=== PATIENT | female | born 1945 | race Caucasian/White ===

== ENCOUNTER 2017-11-03 05:39 | Inpatient (IN) | payer MEDICARE, OTHER ==
[2017-11-03] MEDS ORDERED: predniSONE 20 MG TAB PO STA (05:51)
[2017-11-03] MEDS ORDERED: IPRATROPIUM-ALBUTEROL 3 ML NEB INHALATION STA (05:51)
--- NOTE | 2017-11-03 05:54 | ED ---
General Adult HPI - General Chief complaint: Shortness of Breath Stated complaint: JAYLENE Time Seen by Provider: 11/03/17 05:46 Source: patient, family Mode of arrival: ambulatory Limitations: no limitations - History of Present Illness Initial comments: Her back is a 72-year-old female with a past medical history of asthma presents the emergency department today for evaluation of persistent wheezing. Patient reports that she developed some wheezing on Friday night, she reports that she wheezed throughout the evening but that it resolved and she was able to sleep throughout the night. She reports that she felt well throughout the day on Friday. Friday evening she again developed some wheezing, she reports she tried using an MDI inhaler with no improvement in her symptoms. She reports the wheezing Throughout the entire night and this morning she decided to come to the ER for further evaluation. Patient describes the wheezing as feeling like a tightness throughout her chest, she reports that she feels like she cannot take a deep breath and when she breathes out she wheezes and it causes her to have a harsh cough. Cough is been nonproductive. Patient denies any fevers, chills, nausea, vomiting, chest pain or palpitations. Asthma and does have an inhaler at home, she has required breathing treatments in the past, he is a former smoker but reports she has not smoked in years and has never been formally diagnosed with COPD or emphysema or chronic bronchitis. - Related Data Home Medications Medication Instructions Recorded Confirmed Aspirin 81 mg PO DAILY 02/28/15 11/03/17 Calcium Carbonate/Vitamin D3 1 tab PO DAILY 02/28/15 11/03/17 [Calcium 600-Vit D3 400 Tablet] Cetirizine HCl [Zyrtec] 10 mg PO DAILY 02/28/15 11/03/17 Levothyroxine Sodium [Synthroid] 100 mcg PO DAILY 02/28/15 11/03/17 Multivit-Min/FA/Lycopen/Lutein 1 tab PO DAILY 02/28/15 11/03/17 [Centrum Silver Tablet] Omeprazole [PriLOSEC] 20 mg PO DAILY 02/28/15 11/03/17 Pravastatin Sodium [Pravachol] 40 mg PO DAILY 02/28/15 11/03/17 Glucosam/Favio-Msm1/C/Rex/Bosw 1 tab PO DAILY 04/25/15 11/03/17 [Glucosamine-Chondroitin Tablet] Temazepam [Restoril] 15 mg PO HS PRN 04/25/15 11/03/17 Previous Rx's Medication Instructions Recorded Hydrocodone/Acetaminophen [[place] 1 tab PO Q6HR PRN #30 tab 04/25/15 5-325] Ibuprofen [Motrin] 600 mg PO Q6HR PRN #60 tab 04/25/15 HYDROcodone/APAP 5-325MG [[place] 5] 1 - 2 each PO Q4-6H PRN #90 tab 07/28/15 Allergies Allergy/AdvReac Type Severity Reaction Status Date / Time No Known Allergies Allergy Verified 11/03/17 05:44 Review of Systems ROS Statement: Those systems with pertinent positive or pertinent negative responses have been documented in the HPI. ROS Other: All systems not noted in ROS Statement are negative. Past Medical History Past Medical History: Asthma, GERD/Reflux, Hyperlipidemia, Osteoarthritis (OA), Thyroid Disorder History of Any Multi-Drug Resistant Organisms: None Reported Past Surgical History: Cholecystectomy, Hysterectomy, Orthopedic Surgery Additional Past Surgical History / Comment(s): carpel tunnel,trigger thumb Additional Past Anesthesia/Blood Transfusion Reaction / Comment(s): slow to wake up Past Psychological History: No Psychological Hx Reported Smoking Status: Never smoker Past Alcohol Use History: None Reported Past Drug Use History: None Reported - Past Family History Sister(s) Family Medical History: Cancer General Exam - General Exam Comments Initial Comments: GENERAL: Patient is well-developed and well-nourished. In moderate respiratory distress HENT: Normocephalic, Atraumatic. Neck is soft and supple. No significant lymphadenopathy is noted. Oropharynx is clear. Moist mucous membranes. Neck has full range of motion without eliciting any pain. EYES: The sclera were anicteric and conjunctiva were pink and moist. Extraocular movements were intact and pupils were equal round and reactive to light. Eyelids were unremarkable. PULMONARY: Significant expiratory wheezes in all lung banks CARDIOVASCULAR: There is a regular rate and rhythm without any murmurs gallops or rubs. ABDOMEN: Soft and nontender with normal bowel sounds. SKIN: Skin is clear with no lesions or rashes and otherwise unremarkable. NEUROLOGIC: Patient is alert and oriented x3. Cranial nerves II through XII are grossly intact. Motor and sensory are also intact. Normal speech, volume and content. Symmetrical smile. MUSCULOSKELETAL: Normal extremities with adequate strength and full range of motion. No lower extremity swelling or edema. No calf tenderness. No edema LYMPHATICS: No significant lymphadenopathy is noted PSYCHIATRIC: Normal psychiatric evaluation. Limitations: no limitations Limitations: no limitations Course Vital Signs 11/03/17 11/03/17 11/03/17 05:42 06:11 06:18 Temperature 98 F Pulse Rate 77 72 78 Respiratory 20 Rate Blood Pressure 120/64 O2 Sat by Pulse 94 L Oximetry 11/03/17 06:48 Temperature Pulse Rate 74 Respiratory 16 Rate Blood Pressure 114/58 O2 Sat by Pulse 98 Oximetry EKG Findings - EKG Comments: EKG Findings:: EKG obtained at 5:52 AM, rate is 65, rhythm is sinus, normal axis , normal intervals, [place] 136, QRS 82, QTc 413. There is no acute ST elevations or depressions no evidence of acute ischemia or infarction. Medical Decision Making - Medical Decision Making Patient was seen and evaluated, history was obtained from the patient and EMS patient with wheezing in all lung banks, history of asthma, no history of COPD never a smoker Breathing treatments and steroids were ordered EKG nonischemic Labs unremarkable Patient was reevaluated after breathing treatment, she had less respiratory effort but continued to have wheezing in all lung bakns. Considering the patient's advanced age, the fact that she does not have a nebulizer at home. This is not her baseline. I do feel she requires closer monitoring. Patient care was discussed with Dr. araya who accepts the patient to observation for asthma exacerbation and an elderly patient. - Lab Data Result diagrams: 11/03/17 06:01 11/03/17 06:01 Lab Results 11/03/17 11/03/17 11/03/17 Range/Units 06:01 06:01 06:01 WBC 6.6 (3.8-10.6) k/uL RBC 4.11 (3.80-5.40) m/uL Hgb 12.3 (11.4-16.0) gm/dL Hct 37.7 (34.0-46.0) % MCV 91.6 (80.0-100.0) fL MCH 29.8 (25.0-35.0) pg MCHC 32.6 (31.0-37.0) g/dL RDW 13.7 (11.5-15.5) % Plt Count 187 (150-450) k/uL Neutrophils % 61 % Lymphocytes % 27 % Monocytes % 6 % Eosinophils % 5 % Basophils % 0 % Neutrophils # 4.0 (1.3-7.7) k/uL Lymphocytes # 1.8 (1.0-4.8) k/uL Monocytes # 0.4 (0-1.0) k/uL Eosinophils # 0.3 (0-0.7) k/uL Basophils # 0.0 (0-0.2) k/uL PT (9.0-12.0) sec INR (<1.2) APTT (22.0-30.0) sec Sodium 144 (137-145) mmol/L Potassium 4.1 (3.5-5.1) mmol/L Chloride 107 (98-107) mmol/L Carbon Dioxide 28 (22-30) mmol/L Anion Gap 9 mmol/L BUN 13 (7-17) mg/dL Creatinine 0.82 (0.52-1.04) mg/dL Est GFR (CKD-EPI)AfAm 82 (>60 ml/min/1.73 sqM) Est GFR (CKD-EPI)NonAf 71 (>60 ml/min/1.73 sqM) Glucose 94 (74-99) mg/dL Calcium 9.0 (8.4-10.2) mg/dL Magnesium 2.3 (1.6-2.3) mg/dL Total Bilirubin 0.4 (0.2-1.3) mg/dL AST 32 (14-36) U/L ALT 27 (9-52) U/L Alkaline Phosphatase 81 (38-126) U/L Troponin I (0.000-0.034) ng/mL NT-Pro-B Natriuret Pep 317 pg/mL Total Protein 6.6 (6.3-8.2) g/dL Albumin 3.8 (3.5-5.0) g/dL 18 11/03/17 Range/Units 06:01 06:01 WBC (3.8-10.6) k/uL RBC (3.80-5.40) m/uL Hgb (11.4-16.0) gm/dL Hct (34.0-46.0) % MCV (80.0-100.0) fL MCH (25.0-35.0) pg MCHC (31.0-37.0) g/dL RDW (11.5-15.5) % Plt Count (150-450) k/uL Neutrophils % % Lymphocytes % % Monocytes % % Eosinophils % % Basophils % % Neutrophils # (1.3-7.7) k/uL Lymphocytes # (1.0-4.8) k/uL Monocytes # (0-1.0) k/uL Eosinophils # (0-0.7) k/uL Basophils # (0-0.2) k/uL PT 9.6 (9.0-12.0) sec INR 1.0 (<1.2) APTT 26.4 (22.0-30.0) sec Sodium (137-145) mmol/L Potassium (3.5-5.1) mmol/L Chloride (98-107) mmol/L Carbon Dioxide (22-30) mmol/L Anion Gap mmol/L BUN (7-17) mg/dL Creatinine (0.52-1.04) mg/dL Est GFR (CKD-EPI)AfAm (>60 ml/min/1.73 sqM) Est GFR (CKD-EPI)NonAf (>60 ml/min/1.73 sqM) Glucose (74-99) mg/dL Calcium (8.4-10.2) mg/dL Magnesium (1.6-2.3) mg/dL Total Bilirubin (0.2-1.3) mg/dL AST (14-36) U/L ALT (9-52) U/L Alkaline Phosphatase (38-126) U/L Troponin I <0.012 (0.000-0.034) ng/mL NT-Pro-B Natriuret Pep pg/mL Total Protein (6.3-8.2) g/dL Albumin (3.5-5.0) g/dL Disposition Clinical Impression: Asthma attack Disposition: ADMITTED IP TO THIS HOSP Referrals: Flavio Oliveira MD [Primary Care Provider] - 1-2 days
[2017-11-03 06:13] LABS: Basophils % (A) 0 %; Eosinophils # (A) 0.3 k/uL (0-0.7); Eosinophils % (A) 5 %; HCT 37.7 % (34.0-46.0); HGB 12.3 gm/dL (11.4-16.0); Lymphocytes # (A) 1.8 k/uL (1.0-4.8); Lymphocytes % (A) 27 %; MCH 29.8 pg (25.0-35.0); MCHC 32.6 g/dL (31.0-37.0); MCV 91.6 fL (80.0-100.0); Mean Platelet Volume 7.8; Monocytes # (A) 0.4 k/uL (0-1.0); Monocytes % (A) 6 %; Neutrophils % (A) 61 %; Platelet Count 187 k/uL (150-450); RBC 4.11 m/uL (3.80-5.40); RDW 13.7 % (11.5-15.5); WBC 6.6 k/uL (3.8-10.6)
[2017-11-03 06:21] LABS: Albumin 3.8 g/dL (3.5-5.0); Magnesium 2.3 mg/dL (1.6-2.3); Potassium 4.1 mmol/L (3.5-5.1); Total Bilirubin 0.4 mg/dL (0.2-1.3); Total Protein 6.6 g/dL (6.3-8.2)
[2017-11-03 06:27] LABS: Partial Thromboplastin Time 26.4 sec (22.0-30.0); Prothrombin Time 9.6 sec (9.0-12.0)
--- NOTE | 2017-11-03 06:32 | XR ---
EXAMINATION TYPE: XR chest 2V DATE OF EXAM: 11/03/2017 COMPARISON: 04/25/2015 HISTORY: Short of breath TECHNIQUE: Frontal and lateral views of the chest are obtained. FINDINGS: Heart and mediastinum are normal. Lungs are clear of consolidation.. There is no heart jai lure. Bony thorax is intact. There are old left-sided healed rib fractures. IMPRESSION: No active cardiopulmonary disease. There is clearing of the mild congestion compared to old exam. Normal heart.
[2017-11-03] MEDS ORDERED: NALOXONE 0.4 MG/ML 1 ML VIAL IV PRN (06:51)
[2017-11-03] MEDS: IPRATROPIUM-ALBUTEROL 3 ML NEB INHALATION PRN ×2 (11:14→23:10)
[2017-11-03] MEDS ORDERED: PANTOPRAZOLE 40 MG TABLET PO SCH (12:15)
[2017-11-03] MEDS: ETODOLAC 200 MG CAPSULE PO PRN (13:08)
[2017-11-03] MEDS: PRAVASTATIN SODIUM 40 MG TAB PO SCH (13:09)
[2017-11-03] MEDS: ASPIRIN 81 MG PO SCH (13:09)
[2017-11-03] MEDS: LORATADINE 10 MG TAB PO SCH (13:09)
[2017-11-03] MEDS: LEVOTHYROXINE 100 MCG TAB PO SCH (13:09)
[2017-11-03] MEDS: MONTELUKAST 10 MG TAB PO SCH (13:09)
--- NOTE | 2017-11-03 13:37 | P.HPIM ---
History of Present Illness 72-year-old pleasant female came in to the emergency department compensative wheezing and was discharged home after she was treated appropriately patient ended up having motions of breath came back again. Patient was recently diagnosed with asthma by her primary care physician. Patient has about 20-pack- year of history of smoking. Patient was comparing of cough with clear sputum production. Patient chest x-ray did not show any pneumonic process. Patient is feeling much better today but had does have significant wheezing on exam. Patient was started on oral prednisone which is appropriate and inhalational treatments. Patient denied any fever chills chest pain nausea vomiting abdominal pain dysuria Review of Systems REVIEW OF SYSTEMS: CONSTITUTIONAL: No fever, no malaise, no fatigue. HEENT: No recent visual problems or hearing problems. Denied any sore throat. CARDIOVASCULAR: No chest pain, orthopnea, PND, no palpitations, no syncope. PULMONARY: no hemoptysis. GASTROINTESTINAL: No diarrhea, no nausea, no vomiting, no abdominal pain. Normoactive bowel sounds. NEUROLOGICAL: No headaches, no weakness, no numbness. HEMATOLOGICAL: Denies any bleeding or petechiae. GENITOURINARY: Denies any burning micturition, frequency, or urgency. MUSCULOSKELETAL/RHEUMATOLOGICAL: Denies any joint pain, swelling, or any muscle pain. ENDOCRINE: Denies any polyuria or polydipsia. The rest of the 14-point review of systems is negative. s. Past Medical History Past Medical History: Asthma, GERD/Reflux, Hyperlipidemia, Osteoarthritis (OA), Thyroid Disorder Additional Past Medical History / Comment(s): Hypothyroid, arthritis L knee, R shoulder humeral head fracture with surgery, UTI. History of Any Multi-Drug Resistant Organisms: None Reported Past Surgical History: Bladder Surgery, Cholecystectomy, Hysterectomy, Orthopedic Surgery Additional Past Surgical History / Comment(s): Bilateral carpel tunnel releases , trigger thumb (pt cannot recall laterality), r shoulder arthroscopy/rotator cuff repair/distal clavicle excised and lysis of adhesions, R foot fracture with rodding, bilateral cataract removals/lens implants, colonoscopy, bladder suspension. Additional Past Anesthesia/Blood Transfusion Reaction / Comment(s): slow to wake up Smoking Status: Former smoker - Past Family History Sister(s) Family Medical History: Cancer Additional Family Medical History / Comment(s): Pt thinks her sister had stomach cancer. Mother Family Medical History: No Reported History Additional Family Medical History / Comment(s): Mother was healthy and lived to be 84yrs old. Father Family Medical History: Musculoskeletal Disorder, Neurologic Disorder Additional Family Medical History / Comment(s): Father was diagnosed with April Gehrig's disease. Medications and Allergies Home Medications Medication Instructions Recorded Confirmed Type Aspirin 81 mg PO DAILY 02/28/15 11/03/17 History Calcium Carbonate/Vitamin D3 1 tab PO DAILY 02/28/15 11/03/17 History [Calcium 600-Vit D3 400 Tablet] Cetirizine HCl [Zyrtec] 10 mg PO DAILY 02/28/15 11/03/17 History Levothyroxine Sodium [Synthroid] 100 mcg PO DAILY 02/28/15 11/03/17 History Multivit-Min/FA/Lycopen/Lutein 1 tab PO DAILY 02/28/15 11/03/17 History [Centrum Silver Tablet] Omeprazole [PriLOSEC] 20 mg PO BID 02/28/15 11/03/17 History Pravastatin Sodium [Pravachol] 40 mg PO DAILY 02/28/15 11/03/17 History Glucosam/Favio-Msm1/C/Rex/Bosw 1 tab PO DAILY 04/25/15 11/03/17 History [Glucosamine-Chondroitin Tablet] Temazepam [Restoril] 15 mg PO HS PRN 04/25/15 11/03/17 History Albuterol Sulfate [Proair Hfa] 2 puff INHALATION RT-Q4H PRN 11/03/17 11/03/17 History Diclofenac Sodium [Voltaren] 50 mg PO TID PRN 11/03/17 11/03/17 History Montelukast Sodium [Singulair] 10 mg PO DAILY 11/03/17 11/03/17 History Allergies Allergy/AdvReac Type Severity Reaction Status Date / Time No Known Allergies Allergy Verified 11/03/17 07:20 Physical Exam Vitals: Vital Signs Temp Pulse Pulse Resp BP BP Pulse Ox 11/03/17 11:27 80 11/03/17 11:14 80 11/03/17 08:00 76 16 11/03/17 07:53 98.0 F 76 16 109/74 97 11/03/17 07:29 98 F 74 16 114/58 98 11/03/17 06:48 74 16 114/58 98 11/03/17 06:18 78 11/03/17 06:11 72 11/03/17 05:42 98 F 77 20 120/64 94 L Intake and Output 11/02/17 11/03/17 11/03/17 22:59 06:59 14:59 Intake Total 1800 Balance 1800 Intake: Oral 1800 Other: Voiding Method Toilet # Voids 2 Weight 79.923 kg PHYSICAL EXAMINATION: GENERAL: The patient is alert and oriented x3, not in any acute distress. Well developed, well nourished. HEENT: Pupils are round and equally reacting to light. EOMI. No scleral icterus. No conjunctival pallor. Normocephalic, atraumatic. No pharyngeal erythema. No thyromegaly. CARDIOVASCULAR: S1 and S2 present. No murmurs, rubs, or gallops. PULMONARY: Decreased air entry with significant expiratory wheezing on exam ABDOMEN: Soft, nontender, nondistended, normoactive bowel sounds. No palpable organomegaly. MUSCULOSKELETAL: No joint swelling or deformity. EXTREMITIES: No cyanosis, clubbing, or pedal edema. NEUROLOGICAL: Gross neurological examination did not reveal any focal deficits. SKIN: No rashe Results CBC & Chem 7: 11/03/17 06:01 11/03/17 06:01 Thrombosis Risk Factor Assmnt - Choose All That Apply Any of the Below Risk Factors Present?: Yes Each Factor Represents 1 point: Obesity (BMI >25) Other Risk Factors: Yes Each Risk Factor Represents 2 Points: Age 61-74 years Other congenital or acquired thrombophilia - If yes, enter type in comment: No Thrombosis Risk Factor Assessment Total Risk Factor Score: 3 Thrombosis Risk Factor Assessment Level: Moderate Risk Assessment and Plan Plan: -Shortness of breath: Patient mostly has COPD with acute exacerbation as it's not, and to have asthma at this age, patient will benefit from pulmonary function testing patient was started on systemic steroids inhalational treatments which will be continued. -Gastroesophageal reflux disease -Hyperlipidemia -Hypothyroidism For above-mentioned chronic medical problems patient will be resumed and continued on appropriate home medications.
[2017-11-03] MEDS: IPRATROPIUM-ALBUTEROL 3 ML NEB INHALATION SCH ×2 (15:44→19:28)
[2017-11-03] MEDS: PANTOPRAZOLE 40 MG TABLET PO SCH (17:10)
[2017-11-03] MEDS: TEMAZEPAM 15 MG CAP PO PRN (21:56)
[2017-11-04] MEDS: LEVOTHYROXINE 100 MCG TAB PO SCH (06:09)
[2017-11-04] MEDS ORDERED: LEVOTHYROXINE 100 MCG TAB PO SCH (06:30)
[2017-11-04] MEDS: IPRATROPIUM-ALBUTEROL 3 ML NEB INHALATION SCH ×4 (07:10→19:35)
[2017-11-04] MEDS ORDERED: ASPIRIN 81 MG PO SCH (09:00)
[2017-11-04] MEDS ORDERED: PRAVASTATIN SODIUM 40 MG TAB PO SCH (09:00)
[2017-11-04] MEDS ORDERED: LORATADINE 10 MG TAB PO SCH (09:00)
[2017-11-04] MEDS ORDERED: NON-FORMULARY DRUG (Glucosam/Chon-Msm1/C/Mang/Bosw [Glucosamine-Chondroitin Tablet] 1 TAB) PO SCH (09:00)
[2017-11-04] MEDS ORDERED: MONTELUKAST 10 MG TAB PO SCH (09:00)
[2017-11-04] MEDS: ASPIRIN 81 MG PO SCH (09:12)
[2017-11-04] MEDS: PANTOPRAZOLE 40 MG TABLET PO SCH ×2 (09:12→17:13)
[2017-11-04] MEDS: MONTELUKAST 10 MG TAB PO SCH (09:13)
[2017-11-04] MEDS: PRAVASTATIN SODIUM 40 MG TAB PO SCH (09:13)
[2017-11-04] MEDS: LORATADINE 10 MG TAB PO SCH (09:13)
[2017-11-04] MEDS: predniSONE 20 MG TAB PO SCH (09:13)
--- NOTE | 2017-11-04 17:32 | P.PN ---
Subjective Progress Note Date: 11/04/17 Progress note being dictated for Dr. Andersen Interval history:72-year-old pleasant female came in to the emergency department compensative wheezing and was discharged home after she was treated appropriately patient ended up having motions of breath came back again. Patient was recently diagnosed with asthma by her primary care physician. Patient has about 72-uqvh-lfln of history of smoking. Patient was comparing of cough with clear sputum production. Patient chest x-ray did not show any pneumonic process. Patient is feeling much better today but had does have significant wheezing on exam. Patient was started on oral prednisone which is appropriate and inhalational treatments. Patient denied any fever chills chest pain nausea vomiting abdominal pain dysuria 11/04/2017 Breathing slowly improving on nebulized bronchodilators, steroids. Afebrile. Denies chest pain, palpitations. Nonproductive cough, occasional clear sputum production. Objective - Vital Signs Vital signs: Vital Signs Temp 97.4 F L 11/04/17 13:41 Pulse 84 11/04/17 15:40 Resp 18 11/04/17 13:41 BP 123/67 11/04/17 13:41 Pulse Ox 93 L 11/04/17 13:41 Intake & Output 11/03/17 11/04/17 11/04/17 18:59 06:59 18:59 Intake Total 4200 2700 1800 Balance 4200 2700 1800 Intake: Oral 4200 2700 1800 Other: Voiding Method Toilet # Voids 3 1 3 - Exam GENERAL: alert and oriented x3, no acute distress. Well developed, well nourished. HEENT: Pupils are round and equally reacting to light. EOMI. No scleral icterus. No conjunctival pallor. Normocephalic, atraumatic. No pharyngeal erythema. No thyromegaly. CARDIOVASCULAR: S1 and S2 present. No murmurs, rubs, or gallops. PULMONARY: Decreased air entry with improving expiratory wheezing ABDOMEN: Soft, nontender, nondistended, normoactive bowel sounds. No palpable organomegaly. MUSCULOSKELETAL: No joint swelling or deformity. EXTREMITIES: No cyanosis, clubbing, or pedal edema. NEUROLOGICAL: Gross neurological examination did not reveal any focal deficits. SKIN: No rashes - Labs CBC & Chem 7: 11/03/17 06:01 11/03/17 06:01 Assessment and Plan Assessment: -Shortness of breath: Patient mostly has COPD with acute exacerbation as it's not, and to have asthma at this age, patient will benefit from pulmonary function testing patient was started on systemic steroids inhalational treatments which will be continued. -Gastroesophageal reflux disease -Hyperlipidemia -Hypothyroidism Plan: Continue on current medication regime ,monitoring and symptomatic treatment. Maintain nebulized bronchodilators, steroids. Increase ambulation as tolerated. Discharge planning in progress for tomorrow pending improvement in respiratory function. The impression and plan of care has been dictated as directed. : I performed a history and examination of this patient, discussed the same with the dictator. I agree with the dictator's note ,documented as a scribe. Any additional findings or plans will be noted.
[2017-11-04] MEDS: TEMAZEPAM 15 MG CAP PO PRN (21:30)
[2017-11-04 22:51] VITALS: RESP 16
[2017-11-05] MEDS: IPRATROPIUM-ALBUTEROL 3 ML NEB INHALATION PRN (04:10)
[2017-11-05] MEDS: LEVOTHYROXINE 100 MCG TAB PO SCH (06:07)
[2017-11-05 07:31] VITALS: BP 108/70; TEMP 97.7
[2017-11-05] MEDS: IPRATROPIUM-ALBUTEROL 3 ML NEB INHALATION SCH ×2 (07:38→11:22)
[2017-11-05] MEDS: PANTOPRAZOLE 40 MG TABLET PO SCH (08:44)
[2017-11-05] MEDS: LORATADINE 10 MG TAB PO SCH (08:44)
[2017-11-05] MEDS: PRAVASTATIN SODIUM 40 MG TAB PO SCH (08:44)
[2017-11-05] MEDS: ASPIRIN 81 MG PO SCH (08:44)
[2017-11-05] MEDS: MONTELUKAST 10 MG TAB PO SCH (08:45)
[2017-11-05] MEDS: predniSONE 20 MG TAB PO SCH (08:46)
[2017-11-05] MEDS ORDERED: predniSONE 20 MG TAB PO SCH (09:00)
[2017-11-05] MEDS: ETODOLAC 200 MG CAPSULE PO PRN (10:27)
[2017-11-05 11:26] VITALS: PULSE 80
--- NOTE | 2017-11-05 13:56 | P.DS ---
Providers Date of admission: 11/03/17 06:55 Expected date of discharge: 11/05/17 Attending physician: MD Dr. Ganesh Kolb Primary care physician: Flavio Moreno [facility] Course: Final Diagnoses: -Shortness of breath: COPD with acute exacerbation, doubt asthma at this age, patient will benefit from pulmonary function testing -Gastroesophageal reflux disease -Hyperlipidemia -Hypothyroidism Hospital course: This is a 72-year-old pleasant female came in to the emergency department compensative wheezing and was discharged home after she was treated appropriately patient ended up having motions of breath came back again. Patient was recently diagnosed with asthma by her primary care physician. Patient has about 34-nppn-fina of history of smoking. Patient was comparing of cough with clear sputum production. Patient chest x-ray did not show any pneumonic process. Patient is feeling much better today but had does have significant wheezing on exam. Patient was started on oral prednisone which is appropriate and inhalational treatments. Patient denied any fever chills chest pain nausea vomiting abdominal pain dysuria Maintained on nebulized bronchodilators, steroids with significant clinical improvement. Patient is being discharged home in a stable condition with guarded prognosis. Patient will need to have PFTs completed outpatient-Will defer to PCP. Exam GENERAL: alert and oriented x3, no acute distress. CARDIOVASCULAR: S1 and S2 present. No murmurs, rubs, or gallops. PULMONARY: Decreased air entry with occasional minimal expiratory wheezing ABDOMEN: Soft, nontender, nondistended, normoactive bowel sounds. No palpable organomegaly. NEUROLOGICAL: Gross neurological examination did not reveal any focal deficits. The impression and plan of care has been dictated as directed. : I performed a history and examination of this patient, discussed the same with the dictator. I agree with the dictator's note ,documented as a scribe. Any additional findings or plans will be noted. Time taken: 35 minutes Patient Condition at Discharge: Stable Plan - Discharge Summary Discharge Rx Participant: No New Discharge Prescriptions: New Budesonide-Formot 160-4.5 Mcg [Symbicort 160-4.5 Mcg Inhaler] 2 puff INHALATION BID #1 inhaler predniSONE 10 mg PO DIRECTED #30 tab Tiotropium 18 Mcg/Puff [Spiriva] 1 cap INHALATION DAILY #1 cap Continue Pravastatin Sodium [Pravachol] 40 mg PO DAILY Omeprazole [PriLOSEC] 20 mg PO BID Multivit-Min/FA/Lycopen/Lutein [Centrum Silver Tablet] 1 tab PO DAILY Levothyroxine Sodium [Synthroid] 100 mcg PO DAILY Cetirizine HCl [Zyrtec] 10 mg PO DAILY Calcium Carbonate/Vitamin D3 [Calcium 600-Vit D3 400 Tablet] 1 tab PO DAILY Aspirin 81 mg PO DAILY Temazepam [Restoril] 15 mg PO HS PRN PRN Reason: Insomnia Glucosam/Favio-Msm1/C/Rex/Bosw [Glucosamine-Chondroitin Tablet] 1 tab PO DAILY Montelukast Sodium [Singulair] 10 mg PO DAILY Diclofenac Sodium [Voltaren] 50 mg PO TID PRN PRN Reason: Pain Albuterol Sulfate [Proair Hfa] 2 puff INHALATION RT-Q4H PRN #1 inh PRN Reason: Shortness Of Breath Discontinued Albuterol Sulfate [Proair Hfa] 2 puff INHALATION RT-Q4H PRN PRN Reason: Shortness Of Breath Discharge Medication List Aspirin 81 mg PO DAILY 02/28/15 [History] Calcium Carbonate/Vitamin D3 [Calcium 600-Vit D3 400 Tablet] 1 tab PO DAILY 02/01 [History] Cetirizine HCl [Zyrtec] 10 mg PO DAILY 02/28/15 [History] Levothyroxine Sodium [Synthroid] 100 mcg PO DAILY 02/28/15 [History] Multivit-Min/FA/Lycopen/Lutein [Centrum Silver Tablet] 1 tab PO DAILY 02/28/15 [ History] Omeprazole [PriLOSEC] 20 mg PO BID 02/28/15 [History] Pravastatin Sodium [Pravachol] 40 mg PO DAILY 02/28/15 [History] Glucosam/Favio-Msm1/C/Rex/Bosw [Glucosamine-Chondroitin Tablet] 1 tab PO DAILY 04/25/15 [History] Temazepam [Restoril] 15 mg PO HS PRN 04/25/15 [History] Diclofenac Sodium [Voltaren] 50 mg PO TID PRN 11/03/17 [History] Montelukast Sodium [Singulair] 10 mg PO DAILY 11/03/17 [History] Albuterol Sulfate [Proair Hfa] 2 puff INHALATION RT-Q4H PRN #1 inh 11/05/17 [Rx] Budesonide-Formot 160-4.5 Mcg [Symbicort 160-4.5 Mcg Inhaler] 2 puff INHALATION BID #1 inhaler 11/05/17 [Rx] Tiotropium 18 Mcg/Puff [Spiriva] 1 cap INHALATION DAILY #1 cap 11/05/17 [Rx] predniSONE 10 mg PO DIRECTED #30 tab 11/05/17 [Rx] Follow up Appointment(s)/Referral(s): Flavio Oliveira MD [Primary Care Provider] - 3 Days Patient Instructions/Handouts: Asthma (DC)
[2017-11-05] MEDS ORDERED: ETODOLAC 200 MG CAPSULE PO SCH (21:00)
== END 2017-11-05 14:45 | disposition home or self-care (01) | DRG 192 ==
LOC: EC 05:39 → 4MS4W 06:55
PROVIDERS: ADMIT Internal Medicine; ATTEND Internal Medicine
DX: J44.1 Chronic obstructive pulmonary disease with (acute) exacerbation (principal); E03.9 Hypothyroidism, unspecified; E78.5 Hyperlipidemia, unspecified; K21.9 Gastro-esophageal reflux disease without esophagitis; M17.12 Unilateral primary osteoarthritis, left knee; Z79.52 Long term (current) use of systemic steroids; Z79.82 Long term (current) use of aspirin; Z80.0 Family history of malignant neoplasm of digestive organs; Z87.891 Personal history of nicotine dependence; Z90.710 Acquired absence of both cervix and uterus; Z98.42 Cataract extraction status, left eye; Z98.41 Cataract extraction status, right eye; Z96.1 Presence of intraocular lens; Z79.890 Hormone replacement therapy; Z79.899 Other long term (current) drug therapy; Z90.49 Acquired absence of other specified parts of digestive tract
CPT/HCPCS: 36415; 71046; 80053; 83735; 83880; 84484; 85025; 85610; 85730; 93005; 94640; 94760; 99285

== ENCOUNTER → 2021-11-29 | Outpatient (CLI) | payer MEDICARE, OTHER ==
[2021-11-29 14:33] LABS: INR 0.9 (<1.2); Partial Thromboplastin Time 24.6 sec (22.0-30.0); Prothrombin Time 10.3 sec (9.0-12.0)
[2021-11-29 18:39] LABS: Appearance,Urine Clear (Clear); Bilirubin,Urine Negative (Negative); Blood,Urine Negative (Negative); Color,Urine Yellow (Yellow); Ketones,Urine Negative (Negative); Nitrite,Urine Negative (Negative); Specific Gravity,Urine 1.014 (1.001-1.030); Urobilinogen,Urine 0.2 (0.2,1.0)
[2021-11-29 18:45] LABS: Bacteria,Urine None Seen /HPF (None Seen)
[2021-11-29 19:31] LABS: HGB 14.2 g/dL (12.0-15.0); MCH 30.4 pg (27.0-32.0); MCV 92.1 fL (80.0-97.0); Mean Platelet Volume 11.1 fL (9.5-12.2); NRBC Per 100 WBC 0 /100 WBCS (0.0-0.0); Platelet Count 201 X 10*3/uL (140-440); RBC 4.67 X 10*6/uL (4.10-5.20); RDW 13.6 % (11.5-14.5); WBC 11.41 X 10*3/uL (4.50-10.00)
[2021-11-29 19:39] LABS: African American GFR (CKD) 80.2 (60.0-200.0); Albumin 4.5 g/dL (3.8-4.9); Albumin/Globulin Ratio 1.95 (1.60-3.17); Anion Gap 11.5 mmol/L (10.00-18.00); BUN/Creat Ratio 17.24 Ratio (12.00-20.00); Blood Urea Nitrogen 14.1 mg/dL (9.0-27.0); Calcium 9.4 mg/dL (8.7-10.3); Carbon Dioxide 30.8 mmol/L (20.0-27.5); Globulin 2.3 g/dL (1.6-3.3); Non-African American GFR(CKD) 69.2 (60.0-200.0); Potassium 4.4 mmol/L (3.5-5.5); Total Bilirubin 0.3 mg/dL (0.30-1.20); Total Protein 6.8 g/dL (6.2-8.2)
== END | disposition home or self-care (01) ==
LOC: LABPAT 13:06
PROVIDERS: ATTEND Orthopaedic Surgery
DX: Z01.818 Encounter for other preprocedural examination (principal); M17.12 Unilateral primary osteoarthritis, left knee
CPT/HCPCS: 80053; 81001; 85027; 85610; 85730; 87070; 93005

== ENCOUNTER 2021-12-24 07:32 | Day surgery (SDC) | payer MEDICARE, OTHER ==
[~2021-12-24 07:32] MED LIST: ACETAMINOPHEN TAB 500 MG TAB PO PRN; GABAPENTIN 300 MG CAP PO PRN; MELOXICAM 7.5 MG TAB PO PRN; TRANEXAMIC ACID IN NACL,ISO-OS 1,000 MG in SALINE 1 100ML.BAG IVPB PRN
[2021-12-24] MEDS ORDERED: DEXAMETHASONE SOD PHOSPHATE 4 MG/ML 1 ML VIAL IV ONE (07:46)
[2021-12-24] MEDS ORDERED: ONDANSETRON 4 MG/2 ML VIAL IVP ONE (07:46)
[2021-12-24] MEDS ORDERED: HYDROmorphone 0.5 MG/0.5 ML SYRINGE IVP PRN ×4 (07:46→08:50)
[2021-12-24] MEDS ORDERED: MIDAZOLAM 2 MG/2 ML VIAL IV PRN (07:46)
[2021-12-24] MEDS: LACTATED RINGERS 1,000 ML IV SCH (08:04)
[2021-12-24] MEDS ORDERED: MIDAZOLAM 2 MG/2 ML VIAL IVP ONE (08:31)
[2021-12-24] MEDS ORDERED: MAGNESIUM HYDROXIDE 2,400 MG/10 ML CUP PO PRN (08:50)
[2021-12-24] MEDS ORDERED: NA PHOS,M-B/NA PHOS,DI-BA 133 ML ENEMA RECTAL PRN (08:50)
[2021-12-24] MEDS ORDERED: bisacodyL 10 MG SUPP RECTAL PRN (08:50)
[2021-12-24] MEDS ORDERED: NALOXONE 0.4 MG/ML 1 ML VIAL IV PRN (08:50)
[2021-12-24] MEDS ORDERED: ONDANSETRON 4 MG/2 ML VIAL IVP PRN (08:50)
[2021-12-24] MEDS ORDERED: HYDROcodone/APAP 7.5-325MG 1 EACH TAB PO PRN (08:52)
[2021-12-24] MEDS ORDERED: SODIUM CHLORIDE 0.9% (PF) 10 ML VIAL ONE (08:54)
[2021-12-24] MEDS ORDERED: fentaNYL (PF) 50 MCG/ML 2 ML AMP ONE (08:54)
[2021-12-24] MEDS ORDERED: MIDAZOLAM 2 MG/2 ML VIAL ONE (08:54)
[2021-12-24] MEDS ORDERED: TRANEXAMIC ACID IN NACL,ISO-OS 1,000 MG/100 ML BAG ONE (08:54)
[2021-12-24] MEDS ORDERED: ROPIVACAINE 5 MG/ML 30 ML VIAL ONE (08:54)
[2021-12-24] MEDS ORDERED: PROPOFOL 10 MG/ML 20 ML VIAL IV ONE (08:54)
--- NOTE | 2021-12-24 08:54 | P.ANPRN ---
Procedure Note - Anesthesia - Nerve Block Performed Left Adductor Canal Infusion Time Out Performed: Yes Date of Procedure: 12/24/21 Procedure Start Time: 08:30 Procedure Stop Time: 08:39 Location of Patient: PreOp Indication: Requested by Surgeon Sedation Type: Sedate with meaningful contact maintained Preparation: Sterile Prep, Sterile Dressing Position: Supine Catheter: Indwelling Needle Types: Pajunk Needle Gauge: 18 Ultrasound used to visualize needle placement: Yes Ultrasound used to observe medication spread: Yes Injectate: 0.5% Ropivacaine (see comment for volume) (15 ml +10 ml PF NS) Blood Aspirated: No Pain Paresthesia on Injection Noted: No Resistance on Injection: Normal Image Stored and Saved: Yes Events: Uneventful and Well Tolerated
[2021-12-24] MEDS ORDERED: ROPIVACAINE 0.2%-NS ON-Q PUMP 1,090 MG, EMPTY PAIN BALL 1 EACH MISCELLANE PRN (08:55)
--- NOTE | 2021-12-24 08:55 | P.ANPRN ---
Procedure Note - Anesthesia - Nerve Block Performed Left iPack Single Time Out Performed: Yes Date of Procedure: 12/24/21 Procedure Start Time: 08:40 Procedure Stop Time: 08:47 Location of Patient: PreOp Indication: Requested by Surgeon Sedation Type: Sedate with meaningful contact maintained Preparation: Sterile Prep Position: Right Lateral Needle Types: Pajunk Needle Gauge: 21 Ultrasound used to visualize needle placement: Yes Ultrasound used to observe medication spread: Yes Injectate: 0.5% Ropivacaine (see comment for volume) (15 ml + 10ml PF NS) Blood Aspirated: No Pain Paresthesia on Injection Noted: No Resistance on Injection: Normal Image Stored and Saved: Yes Events: Uneventful and Well Tolerated
[2021-12-24] MEDS ORDERED: ceFAZolin 1,000 MG in SODIUM CHLORIDE 0.9% 1,000 ML IRRIGATION ONE (09:21)
--- NOTE | 2021-12-24 10:11 | P.OP ---
Date of Procedure: 12/24/21 Preoperative Diagnosis: Severe osteoarthritis left knee Postoperative Diagnosis: Severe osteoarthritis left knee Procedure(s) Performed: Left total knee arthroplasty Implants: [employer] Journey II CR Oxinium cruciate retaining femoral component size 5, left [employer] Journey nonporous tibial baseplate size 3, left [employer] Journey II, XLPE CR articular insert, size 9 mm, Size 3-4, left [employer] Journey Belia II resurfacing patellar component, oval, 29 mm All components were cemented using Palacos R bone cement The articulation is Oxinium on polyethylene Anesthesia: spinal Surgeon: Felix Lincoln Aviation Consultant #1: Annette Hu Estimated Blood Loss (ml): 40 Pathology: other (Bone and cartilage) Condition: stable Disposition: PACU Indications for Procedure: After failure of conservative treatment we discussed the surgical and nonsurgical treatment options at length. Patient wishes to proceed with a total knee arthroplasty. Complications specific to this procedure were discussed at length, including but not limited to infection, bleeding, stiffness, and nerve injury. Covid-19 was also discussed at length with the patient, and they are aware of the current policies and procedures. The patient was given the option of delaying surgery, but they elect to proceed knowing these risks. Patient is aware of all these complications and informed consent was obtained Operative Findings: The operative findings are consistent with severe osteoarthritis of the left knee Description of Procedure: Patient was seen in the preoperative area and the consent was reviewed and the operative site was marked with a skin marker. The patient verified the procedure and the operative site. An adductor canal pain catheter and an iPACK block was placed by anesthesia in the preoperative area. The patient was then brought to the operating room and given preoperative antibiotics intravenously. A gram of transexamic acid was given intravenously. A spinal anesthetic was administered by the anesthesia department. A tourniquet was placed on the upper thigh and the lower extremity was prepped with chlorhexidine and draped in usual sterile fashion. A universal timeout was then performed which confirmed the patient's name, surgical site, ALLERGIES, and consent. The lower extremity was then exsanguinated and tourniquet was inflated to 250 mmHg. A standard anterior midline approach to the knee was performed. The skin and subcutaneous tissue were sharply dissected down to the patellar tendon. A medial parapatellar arthrotomy was then performed. The knee was then extended, the patellar was everted, and the knee was again flexed. The infra-patellar fat pad was removed in order to enhance exposure. The anterior horns of both menisci were excised, and a release was performed to the posterior medial aspect of the knee. On gross visual inspection, there was complete loss of articular cartilage in the medial and patellofemoral joint spaces. There was also significant cartilage damage in the lateral compartment. There were multiple periarticular osteophytes globally about the knee which were then removed with a Ronguer. The femoral canal was then opened with the 9.5 mm intramedullary drill. The 8 mm intramedullary francy was then inserted into the femoral canal with the distal femoral cutting guide set for 5 of valgus. The distal femoral cutting block was then pinned in place. The intramedullary francy was then removed, and the distal femur was then cut. The cutting block was then removed and the cut was checked for symmetry. The resected bone was then measured to confirm the appropriate distal femoral resection. Next, the sizing guide was then placed and set for 3 external rotation based off of the epicondylar axis and Whitesides line. Pins were then placed and the drill holes, and the femur was sized with the sizing stylus. The pins were then removed, and the sizing guide was then removed. The spikes of the femoral block was then placed into the predrilled holes, and malleted into place. Two 45 mm pins were then placed into the fixation holes on the cutting block. An ochoa wing was then used to ensure there would be no notching with the anterior cut. The anterior condyles were cut without notching. The anterior chord cut was then performed, followed by the posterior cut, posterior chamfer cut, and the anterior chamfer cut. The collateral ligaments were protected during the entire process. The cutting block was then removed. Any remaining bone and osteophytes were removed from the femur with a Ronguer. The femoral canal was plugged with autologous bone. Attention was then directed to the tibia. The remaining ACL was removed with a Ronguer, and the tibia was then gently subluxed forward with a large bent knee retractor. Any remaining menisci were excised. The posterior lateral corner was cauterized in order to coagulate the lateral geniculate artery. The extra medullary tibial cutting guide was then placed, set for the appropriate rotation, slope, and depth of resection. The proximal tibia cutting guide was then pinned in place. Proximal tibia was then cut and sized. The femoral trial was placed. A narrow saw blade was then used to remove the anterior intracondylar femoral bone. The CR notch trial was then placed. The tibial trial was placed with the appropriate-sized insert. The knee was able to fully extend and flex to 130 and was stable throughout all range of motion. The knee was then extended and the patella was everted. Patella was then measured, and then using an osteotomy guide, the patella was cut at the appropriate level. The patella was then measured and drilled and the patella trial was then placed. The knee was then taken through range of motion with the patella trial and the patella tracked normally using the no thumbs technique. The knee was then extended patella trial was then removed and the patella was everted. Knee was then flexed and lug holes were drilled through the femoral trial and the femoral trial was then removed. The tibial was then re-exposed, and the tibial broach guide was then pinned in place after it was set for the appropriate rotation to allow for the most coverage without overhang. The tibia was then reamed and broached. The cut surfaces of bone were then irrigated with pulsatile lavage. The knee was also irrigated with Irrisept solution. The components were then opened, the cement was mixed, and the components were then cemented in place. The cement was allowed to harden with the knee in full extension. After the cemented hardened, the tourniquet was released and hemostasis was obtained. A second gram of transexamic acid was given intravenously. The knee was again irrigated. The knee was again taken through range of motion and found to be stable throughout all range of motion of 0-130, and the patella tracked normally. The fascia was then closed with 0 Vicryl followed by #2 strata fix suture. The subcutaneous tissue was closed with 3-0 Vicryl and 3-0 strata fix. Exofin glue was used for the skin and placed with the knee in flexion. After the glue had dried, and Optafoam silver impregnated dressing was applied. The patient was then transferred to recovery room in stable condition. The roofer assistant DHARMESH Crabtree was required due the complexity surgery and the need for a skilled surgical scrub tech. She assisted in positioning, draping, retraction, and closure of the wound.
--- NOTE | 2021-12-24 11:01 | XR ---
EXAMINATION TYPE: XR knee limited LT DATE OF EXAM: 12/24/2021 10:56 AM INDICATION: Patient age:Female; 76 years old; Reason for study: Evaluation for Postop abnormality and alignment; PHH. COMPARISON: None. TECHNIQUE: The Left knee(s) was examined in frontal and lateral projections. FINDINGS: Postsurgical changes from left total knee arthroplasty with distal femoral and proximal t ibial components. Hardware appears intact with appropriate alignment. No acute fractures or dislocati ons. There is associated soft tissue gas and edema identified. Round calcification demonstrated withi n the suprapatellar anterior soft tissues. IMPRESSION: Postsurgical changes from left total knee arthroplasty. Hardware appears intact with appropriate posi tion.
[2021-12-24] MEDS: ASPIRIN 325 MG TAB PO SCH ×2 (12:25→20:40)
[2021-12-24] MEDS: SODIUM CHLORIDE 0.9% 1,000 ML IV SCH ×2 (12:25→13:37)
[2021-12-24] MEDS ORDERED: PROCHLORPERAZINE INJ 10 MG/2 ML VIAL IVP STA (17:48)
[2021-12-24] MEDS ORDERED: ALBUTEROL NEBULIZED 2.5 MG/3 ML INHALATION PRN ×2 (18:54)
[2021-12-24] MEDS ORDERED: TEMAZEPAM 15 MG CAP PO PRN (18:54)
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
[2021-12-24] MEDS ORDERED: SENNOSIDES-DOCUSATE SODIUM 1 EACH TAB PO SCH (21:00)
[2021-12-25] MEDS: HYDROcodone/APAP 7.5-325MG 1 EACH TAB PO PRN ×2 (04:45→11:59)
[2021-12-25] MEDS ORDERED: LEVOTHYROXINE 100 MCG TAB PO SCH (06:30)
--- NOTE | 2021-12-25 07:13 | P.PN ---
Progress Note - Text Progress Note Date: 12/25/21 Postoperative day # 1 status post total knee arthroplasty, and adductor canal catheter placed for postoperative analgesia, currently at ropivacaine 0.2% 8 mL per hour and continuous infusion, visual analogue scale is 3/10, patient using oral pain medication for breakthrough pain. Assessment and plan= Acute postoperative pain, adductor canal catheter for pain control, pain is well controlled we'll continue the same management.
[2021-12-25] MEDS ORDERED: PANTOPRAZOLE 40 MG TABLET PO SCH (07:30)
[2021-12-25 08:34] VITALS: BP 115/80; PULSE 90; RESP 15; TEMP 98
[2021-12-25] MEDS: ASPIRIN 325 MG TAB PO SCH (08:45)
[2021-12-25] MEDS: LACTATED RINGERS 1,000 ML IV SCH (08:45)
[2021-12-25] MEDS ORDERED: PRAVASTATIN SODIUM 40 MG TAB PO SCH (09:00)
[2021-12-25] MEDS ORDERED: ASPIRIN 81 MG PO SCH (09:00)
--- NOTE | 2021-12-25 09:18 | P.DS ---
Providers Expected date of discharge: 12/25/21 Attending physician: Felix Lincoln Consults: 12/24/21 08:50 Consult Physician Routine Consulting Provider: Abraham Cole Consult Reason/Comments: medical management Do you want consulting provider notified?: Yes Primary care physician: Flavio Oliveira - Discharge Diagnosis(es) (1) Osteoarthritis of left knee Current Visit: Yes Status: Acute (2) S/P total knee arthroplasty Current Visit: Yes Status: Acute Hospital Course: This is a 76-year-old female with known history of degenerative arthritis of the left knee. The patient presented for evaluation as an outpatient. After discussion and consideration patient elects to proceed with total knee arthroplasty. The patient is seen preoperatively by Dr. Lincoln and medically cleared for surgery by their primary care physician. Patient is admitted to [facility] on 12/24/2021 for total knee arthroplasty. The procedure is performed without complication or sequelae. The patient is doing well postoperatively. Labs and vital signs are stable on day of discharge. On day of discharge patient's knee incision is healing well. There is minimal erythema. There is no drainage noted at this time. There is minimal soft tissue swelling to the knee. Patient has full foot and ankle motion without difficulty or pain. Calf is soft and nontender to palpation. Neurovascular status to the left lower extremity is intact. Patient is discharged home in good condition. Please see med rec for accurate list of home medications. Plan - Discharge Summary Discharge Rx Participant: Yes New Discharge Prescriptions: New Aspirin 325 mg PO BID #60 tab HYDROcodone/APAP 7.5-325MG [[place] 7.5-325] 1 - 2 tab PO Q6H PRN #32 tab PRN Reason: Pain Sennosides [Senokot] 2 tab PO DAILY PRN #60 tablet PRN Reason: Constipation Continue Pravastatin Sodium [Pravachol] 40 mg PO DAILY Omeprazole [PriLOSEC] 20 mg PO BID Levothyroxine Sodium [Synthroid] 100 mcg PO DAILY Cetirizine HCl [Zyrtec] 10 mg PO DAILY Aspirin 81 mg PO DAILY Temazepam [Restoril] 15 mg PO HS PRN PRN Reason: Insomnia Albuterol Sulfate [Proair Hfa] 2 puff INHALATION RT-Q4H PRN #1 inh PRN Reason: Shortness Of Breath Alendronate Sodium [Fosamax] 70 mg PO WEEKLY Albuterol Nebulized [Ventolin Nebulized] 2.5 mg INHALATION Q8H PRN PRN Reason: Shortness Of Breath Discharge Medication List Aspirin 81 mg PO DAILY 02/28/15 [History] Cetirizine HCl [Zyrtec] 10 mg PO DAILY 02/28/15 [History] Levothyroxine Sodium [Synthroid] 100 mcg PO DAILY 02/28/15 [History] Omeprazole [PriLOSEC] 20 mg PO BID 02/28/15 [History] Pravastatin Sodium [Pravachol] 40 mg PO DAILY 02/28/15 [History] Temazepam [Restoril] 15 mg PO HS PRN 04/25/15 [History] Albuterol Sulfate [Proair Hfa] 2 puff INHALATION RT-Q4H PRN #1 inh 11/05/17 [Rx] Albuterol Nebulized [Ventolin Nebulized] 2.5 mg INHALATION Q8H PRN 12/19/21 [His tory] Alendronate Sodium [Fosamax] 70 mg PO WEEKLY 12/19/21 [History] Aspirin 325 mg PO BID #60 tab 12/24/21 [Rx] HYDROcodone/APAP 7.5-325MG [[place] 7.5-325] 1 - 2 tab PO Q6H PRN #32 tab 12/24/21 [Rx] Sennosides [Senokot] 2 tab PO DAILY PRN #60 tablet 12/24/21 [Rx] Follow up Appointment(s)/Referral(s): Flavio Oliveira MD [Primary Care Provider] - 10 Days Felix Linclon DO [Doctor of Osteopathic Medicine] - 2 Weeks Activity/Diet/Wound Care/Special Instructions: Weightbearing as tolerated with a walker. CPM 5-6h daily as tolerated. Leave dressing intact. Dressing may be removed by home care nurse or by patient in 7 days. Then change dressing twice daily until follow up. May shower with initial dressing intact and after removal. If dressing become saturated, please remove. Recommend use of compression stockings daily until follow up to help prevent swelling and blood clots. May remove at night before sleeping. Please take aspirin 325mg twice daily for 30 days to prevent blood clots. Please follow up with [facility] and call with any questions or concerns, . Discharge Disposition: HOME WITH HOME HEALTH SERVICES
[2021-12-25 10:53] LABS: Basophils # (A) 0.02 X 10*3/uL (0.00-0.10); Basophils % (A) 0.2 %; Eosinophils # (A) 0.01 X 10*3/uL (0.04-0.35); Eosinophils % (A) 0.1 %; HCT 34.1 % (37.2-46.3); HGB 10.9 g/dL (12.0-15.0); Immature Grans, Automated 0.4 %; Lymphocytes # (A) 2.09 X 10*3/uL (0.90-5.00); Lymphocytes % (A) 18.4 %; MCH 30.2 pg (27.0-32.0); MCV 94.5 fL (80.0-97.0); Monocytes # (A) 1.27 X 10*3/uL (0.20-1.00); Monocytes % (A) 11.2 %; NRBC Per 100 WBC 0 /100 WBCS (0.0-0.0); Neutrophils # (A) 7.93 X 10*3/uL (1.80-7.70); Neutrophils % (A) 69.7 %; Platelet Count 194 X 10*3/uL (140-440); RBC 3.61 X 10*6/uL (4.10-5.20); RDW 13.2 % (11.5-14.5); WBC 11.36 X 10*3/uL (4.50-10.00)
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
== END 2021-12-25 12:22 | disposition home health service (06) ==
LOC: OR 07:32 → 4SSUR 10:37 → OR 12-25 12:22
PROVIDERS: ATTEND Orthopaedic Surgery
DX: M17.32 Unilateral post-traumatic osteoarthritis, left knee (principal); G89.18 Other acute postprocedural pain; E78.5 Hyperlipidemia, unspecified; E03.9 Hypothyroidism, unspecified; D62 Acute posthemorrhagic anemia; D72.829 Elevated white blood cell count, unspecified; F17.200 Nicotine dependence, unspecified, uncomplicated; G44.309 Post-traumatic headache, unspecified, not intractable
CPT/HCPCS: 97161; 64999; 64448; 76942; 85025; 88300; 73560; 27447; C1713; C1776; C1751; J2250; J0780; J1100; J0690 ×3; J2405; J1170; J2795

== ENCOUNTER → 2022-03-14 | Outpatient (CLI) | payer MEDICARE, OTHER ==
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
== END | disposition home or self-care (01) ==
LOC: RADNMMAIN 10:22
PROVIDERS: ATTEND Family Medicine
DX: M19.011 Primary osteoarthritis, right shoulder (principal); M19.041 Primary osteoarthritis, right hand; M19.072 Primary osteoarthritis, left ankle and foot; M43.8X6 Other specified deforming dorsopathies, lumbar region; M47.9 Spondylosis, unspecified; Z96.652 Presence of left artificial knee joint
CPT/HCPCS: 78306; A9503

== ENCOUNTER → 2022-08-15 | Outpatient (CLI) | payer MEDICARE, OTHER ==
[2022-08-15 13:52] LABS: African American GFR (CKD) 72 (>60 ml/min/1.73 sqM); Blood Urea Nitrogen 14 mg/dL (7-17); Non-African American GFR(CKD) 62 (>60 ml/min/1.73 sqM)
--- NOTE | 2022-08-15 15:06 | CT ---
EXAMINATION TYPE: CT abdomen pelvis w con CT DLP: 1460.3 mGycm, Automated exposure control for dose reduction was used. DATE OF EXAM: 08/15/2022 2:16 PM COMPARISON: None. CLINICAL INDICATION:Female, 77 years old with history of K46.9; hernia TECHNIQUE: Axial CT of the abdomen and pelvis. Sagittal and coronal reformats were created on a [employer] workstation. Contrast used:100 mL of Isovue 300 with IV Contrast, (none if empty) Oral contrast used: with Oral Contrast (none if empty) FINDINGS: LOWER CHEST: Unremarkable ABDOMEN LIVER: Unremarkable GALLBLADDER AND BILE DUCTS: Cholecystectomy clips. PANCREAS: Unremarkable. SPLEEN: Unremarkable. ADRENAL GLANDS: Unremarkable. KIDNEYS AND URETERS: No evidence of hydronephrosis or renal calculus. The ureters are unremarkable. PELVIS BLADDER: Unremarkable REPRODUCTIVE: The uterus is surgically absent. ABDOMEN & PELVIS STOMACH AND BOWEL: No evidence of bowel obstruction. Few scattered colonic diverticula. PERITONEUM/RETROPERITONEUM: No evidence of pneumoperitoneum or free fluid. VASCULATURE: Moderate atherosclerotic calcifications are present throughout the abdominal aorta and i ts branches. No evidence of aortic aneurysm. MUSCULOSKELETAL: No acute osseous abnormalities. Severe disc degeneration changes are present through out the thoracolumbar spine. LYMPH NODES: No gross evidence for lymphadenopathy. SOFT TISSUE/ABDOMINAL WALL: No inguinal hernia is visualized. No umbilical hernia and family present. No evidence for anterior abdominal wall hernia. IMPRESSION: 1. No intra-abdominal hernia visualized. No acute abdominal process. 2. Severe degeneration changes of the spine. 3. Scattered colonic diverticulosis.
== END | disposition home or self-care (01) ==
LOC: RADCTMAIN 12:13
PROVIDERS: ATTEND Surgery
DX: K46.9 Unspecified abdominal hernia without obstruction or gangrene (principal); M51.35 Other intervertebral disc degeneration, thoracolumbar region; K57.30 Diverticulosis of large intestine without perforation or abscess without bleeding
CPT/HCPCS: 82565; 84520; 74177; 36415; Q9967

== ENCOUNTER 2022-12-13 17:07 | Emergency (ER) | payer MEDICARE, OTHER ==
[2022-12-13 17:21] VITALS: BP 142/79; TEMP 98.2
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
--- NOTE | 2022-12-13 21:25 | CT ---
EXAMINATION TYPE: CT brain cspine wo con CT DLP: combined DLP 1146.8 mGycm, Automated exposure control for dose reduction was used. DATE OF EXAM: 12/13/2022 6:50 PM COMPARISON: None. CLINICAL INDICATION:Female, 77 years old with history of fall; fall, large contusion on forehead TECHNIQUE: Brain: Multiple axial CT images of the brain were obtained without IV contrast. Cspine: Axial CT images from the skull base to the inferior aspect of T2 we obtained without intraven ous contrast. Coronal and sagittal reformatted images were also reviewed. FINDINGS: Brain: Extra-axial spaces: No abnormal extra-axial fluid collections. Ventricular system: Dilatation in proportion to cerebral atrophy. Cerebral parenchyma: Moderate generalized atrophy. No acute intraparenchymal hemorrhage or mass effec t. The bowie-white junction appears well differentiated. Scattered hypoattenuating areas are seen wit hin the white matter. Cerebellum: Unremarkable. Mass effect: No evidence of midline shift. Intracranial vasculature: unremarkable Soft tissues: Small soft tissue hematoma over the right forehead just right of midline. Calvarium/osseous structures: No depressed skull fracture. Paranasal sinuses and mastoid air cells: Clear. Visualized orbits: Orbital contents are intact. Cervical spine: Fracture: None. Osseous structures, spinal canal and neural foramina: Postoperative changes with anterior plate and v ertebral body screws at the C4-C5-C6 levels, with prosthetic disc interspace material, hardware appea rs grossly unremarkable. Mild to moderate multilevel degenerative disc disease and facet arthrosis. M ild to moderate bilateral neural foraminal stenoses at C4-C5, C5-C6, C6-C7. Vertebral alignment: Normal AP alignment. Straightening of the normal cervical lordosis, can be seen with degenerative changes, pain, positioning, muscular spasm. Neck soft tissues: Prevertebral soft tissues are within normal limits. Calcifications noted in the ao rtic arch and bilateral cervical carotid arteries. Other: The airway is patent. The lung apices are clear of infiltrate or pneumothorax. A few 3 mm nodu lar densities are seen in the visualized upper lobes, nonspecific but could relate to granulomas. If of concern, follow-up outpatient CT of the chest be obtained. IMPRESSION: Moderate atrophy and mild chronic ischemic white matter changes. No acute intracranial CT abnormality. Postoperative changes and mild multilevel cervical spondylosis. No acute cervical spine fracture or traumatic malalignment. Other chronic and likely incidental findings, as described above.
--- NOTE | 2022-12-13 21:28 | CT ---
EXAMINATION TYPE: CT facial bones wo con CT DLP: combined DLP 1146.8 mGycm, Automated exposure control for dose reduction was used. DATE OF EXAM: 12/13/2022 6:50 PM COMPARISON: . CLINICAL INDICATION:Female, 77 years old with history of fall; PHH, fall, large contusion on forehead TECHNIQUE: Multiple unenhanced axial CT images were obtained of the facial bones soft tissue and bone windows. Coronal, axial and sagittal reformatted images were also provided in soft tissue and bone windows and submitted for interpretation. Additional 3-D reformatted images were obtained on a [employer] workstation. FINDINGS: There is no evidence of acute fracture or malalignment. Mild deformity of the nasal bones appears chr onic. TMJs appear normally aligned. No significant fluid in the visualized paranasal sinuses. Unremar kable soft tissues. Visualized orbits are unremarkable. Material in the left auditory canal, likely c erumen. IMPRESSION: No evidence of acute facial bone fracture.
[2022-12-13 22:04] VITALS: PULSE 83; RESP 18
== END 2022-12-13 21:44 | disposition home or self-care (01) ==
LOC: EC 17:07
DX: S00.83XA Contusion of other part of head, initial encounter (principal); E78.5 Hyperlipidemia, unspecified; J45.909 Unspecified asthma, uncomplicated; K21.9 Gastro-esophageal reflux disease without esophagitis; E03.9 Hypothyroidism, unspecified; Z79.890 Hormone replacement therapy; Z79.899 Other long term (current) drug therapy; W01.0XXA Fall on same level from slipping, tripping and stumbling without subsequent striking against object, initial encounter
CPT/HCPCS: 70450; 70486; 72125; 99285

== ENCOUNTER → 2023-12-30 | Outpatient (CLI) | payer MEDICARE, OTHER ==
--- NOTE | 2024-01-04 22:38 | BD ---
EXAMINATION TYPE: Axial Bone Density DATE OF EXAM: 12/30/2023 CLINICAL HISTORY: 78 years old Female. ICD-10 CODE: M81.0 AGE-RELATED OSTEOPOROSIS , Additional Hist ory: Height: 5 ft 2 in Weight: 179 FRAX RISK QUESTIONS: Alcohol (3 or more units per day): no Family History (Parent hip fracture): no Glucocorticoids (More than 3mos): no (Ex: prednisone, prednisolone, methylprednisolone, dexamethasone, and hydrocortisone). History of Fracture in Adulthood: yes Secondary Osteoporosis: 1. Type 1 Diabetes: no 2. Hyperthyroidism: no 3. Menopause before 45: no 4. Malnutrition: no 5. Chronic liver disease: no Rheumatoid Arthritis: no Current Tobacco Use: no RISK FACTORS HISTORY OF: Surgery to Spine/Hip(right/left)/Wrist (right/left): no MEDICATIONS: Thyroid Medications: yes Which medication: levothyroxine How Long: sev years Osteoporosis Medications:yes Which medication: unsure which one takes once a month How Lon years EXAM MEASUREMENTS: Bone mineral densitometry was performed using the [employer] System. Bone mineral density as measured about the Lumbar spine is: ----- L1-L4(G/cm2): 1.455 T Score Values are as follows: ----- L1: 1.4 ----- L2: 3.0 ----- L3: 2.1 ----- L4: 2.4 ----- L1-L4: 2.3 Z Score Values are as follows: ----- L1: 2.7 ----- L2: 4.3 ----- L3: 3.4 ----- L4: 3.7 ----- L1-L4: 3.6 prev done elsewhere Bone mineral density about the R hip (g/cm2): 0.755 Bone mineral density about the L hip (g/cm2): 0.823 T Score values are as follows: -----R Neck: -2.0 -----L Neck: -1.5 -----R Total: -0.6 -----L Total: -0.8 Z Score values are as follows: -----R Neck: -0.3 -----L Neck: 0.2 -----R Total: 1.0 -----L Total: 0.8 prev done elsewhere FRAX%s: The graph provided illustrates a 15.1 % chance for a major osteoporotic fx and a 4.3 % chance for the hips probability for fx in 10 years time. IMPRESSION: Osteopenia (T Score between -2.5 and -1). There is slightly increased risk of fracture and the patient may be considered for treatment. Re-Screen 2-5 years. NOTE: T-SCORE=SD OF THE YOUNG ADULT MEAN. [facility], , 01/04/2024 10:35 PM
== END | disposition home or self-care (01) ==
LOC: RADBDWWP 15:32
PROVIDERS: ATTEND Family Medicine
DX: M85.89 Other specified disorders of bone density and structure, multiple sites (principal)
CPT/HCPCS: 77080